=== PATIENT | male | born 1965 | race Caucasian/White ===

== ENCOUNTER 2018-08-04 05:33 | Day surgery (SDC) | payer BC ==
[2018-08-04] VITALS (7 sets, daily range): BP systolic 102–147; BP diastolic 63–84; PULSE 56–87; TEMP 98.2–98.4
[~2018-08-04] VITALS: Ht 188 cm; Wt 104.7 kg
[~2018-08-04 05:33] MED LIST: ASPI325T6 PO; NORCO 325 MG-51 TAB PO; testosterone INJ
[2018-08-04] MEDS ORDERED: LOPRESSOR 550 MG/TAB PO (05:50)
[2018-08-04] MEDS ORDERED: DEPO-TESTOS200 MG/M1 IM (05:51)
[2018-08-04] MEDS ORDERED: PERCOCET 325 MG1 TA2 PO (09:52)
[2018-08-04] MEDS ORDERED: MOTRIN 600600 MG/TAB PO (09:52)
[2018-08-04] MEDS ORDERED: COLACE 100100 MG/CAP PO (09:52)
== END 2018-08-04 11:55 | disposition home or self-care (01) ==
LOC: SDCO 05:33
DX: K40.90 Unilateral inguinal hernia, without obstruction or gangrene, not specified as recurrent (principal); D17.6 Benign lipomatous neoplasm of spermatic cord; I10 Essential (primary) hypertension; Z90.79 Acquired absence of other genital organ(s); Z85.47 Personal history of malignant neoplasm of testis
CPT/HCPCS: A4314; C1781; J0690; J1100; J1885; J2405; J2550; J2704; J2710; J3010; J7120